=== PATIENT | female | born 1955 | race Caucasian/White ===

== ENCOUNTER 2023-11-26 07:30 | Inpatient (IN) | payer MEDICARE ==
[2023-11-26 07:56] LABS: HEMATOCRIT 38.1 % (34.0-46.0); HEMOGLOBIN 13.1 g/dL (11.7-15.5); MEAN CORPUSCULAR HEMOGLOBIN 29.9 pg (28.2-33.3); MEAN CORPUSCULAR HGB CONC 34.4 g/dL (31.7-36.0); PLATELET COUNT,PLT 52 K/uL (150-350); RED BLOOD CELL COUNT 4.38 M/uL (3.77-5.09); RED CELL DISTRIBUTION WIDTH 14.5 % (11.2-14.1); WHITE BLOOD CELL COUNT,WBC 27.4 K/uL (4.0-10.2)
[2023-11-26] MEDS: Lactated Ringers 1,000 ML IV ONE (07:56)
[2023-11-26] MEDS: Ondansetron 4 MG/2 ML SDV IVPUSH ONE (07:58)
[2023-11-26] MEDS: fentaNYL 50 MCG/ML SDV IVPUSH ONE ×2 (08:16→14:39)
[2023-11-26 08:22] LABS: ALANINE AMINOTRANSFERASE,ALT 94 U/L (12-78); ALBUMIN 3.2 g/dL (3.4-5.0); ALKALINE PHOSPHATASE 354 IU/L (46-116); ASPARTATE AMNIOTRANSFERASE,AST 386 U/L (15-37); BILIRUBIN TOTAL 3.2 mg/dL (0.2-1.0); BLOOD UREA NITROGEN,BUN 22 mg/dL (7-18); CARBON DIOXIDE,CO2 30.9 mmol/L (21.0-32.0); CHLORIDE,CL 96 mmol/L (98-107); CREATINE KINASE,CK 400 U/L (26-308); CREATININE 1.63 mg/dL (0.51-1.17); GLUCOSE RANDOM 161 mg/dL (70-99); PRO B-TYPE NATRIUR PEPT,BNPPRO 789 pg/mL (0-125); PROTEIN TOTAL,TP 7.3 g/dL (6.4-8.2); SODIUM,NA 138 mmol/L (136-145)
[2023-11-26 08:23] LABS: ANION GAP 13.9 meq/L (7-15); ESTIMATED GFR 35 mL/min (>=60)
[2023-11-26 08:24] LABS: CALCIUM 16.3 mg/dL (8.5-10.1); POTASSIUM,K 2.8 mmol/L (3.5-5.1)
[2023-11-26 08:28] LABS: INR 1.2 (0.9-1.1); PROTHROMBIN TIME 11.6 SEC (9.0-11.1)
[2023-11-26 08:52] LABS: LYMPHOCYTES PERCENT MAN 16; MONOCYTES PERCENT MAN 1; SEG NEUTROPHILS PERCENT MAN 83
[2023-11-26] MEDS: Cefepime 2 GM Vial IVPUSH ONE (09:17)
[2023-11-26] MEDS: Sodium Chloride 0.9% 1,000 ML IV ONE (09:17)
[2023-11-26] MEDS: Potassium Chloride Riders 10 MEQ in Premix Bag 1 BAG IV SCH (09:17)
[2023-11-26] MEDS: VANCOmycin 1.5 GM/300 ML 1.5 GM in Premix Bag 1 BAG IV ONE (10:00)
[2023-11-26 10:14] LABS: BASE EXCESS ARTERIAL,POC 8 mmol/L (-2-3); HCO3 ARTERIAL,POC 33.5 mmol/L (22-26); PCO2 ARTERIAL,POC 49 mmHg (35-48); PH ARTERIAL,POC 7.4 pH (7.35-7.45); PO2 ARTERIAL,POC 88 mmHg (83-108); TCO2 ARTERIAL,POC 33.8 mmol/L (23-27)
[2023-11-26 10:31] LABS: APPEARANCE,URINE CLEAR; BILIRUBIN,URINE SMALL (NEGATIVE); COLOR,URINE DARK YELLOW; GLUCOSE,URINE NEGATIVE (NEGATIVE); KETONES,URINE NEGATIVE (NEGATIVE); LEUKOCYTE ESTERASE,URINE NEGATIVE (NEGATIVE); NITRITE,URINE NEGATIVE (NEGATIVE); OCCULT BLOOD,URINE NEGATIVE (NEGATIVE); PH,URINE 5.5 (5.0-9.0); PROTEIN,URINE 30 mg/dL (NEGATIVE)
[2023-11-26 10:38] LABS: EPITHELIAL CELLS,URINE FEW /LPF; GRANULAR CASTS,URINE FEW; HYALINE CASTS,URINE FEW; WBC,URINE 0-5 /HPF
[2023-11-26] MEDS: Potassium Chloride 20 MEQ Tab.ER PO ONE (11:23)
[2023-11-26] MEDS ORDERED: Sodium Chloride 0.9% 1,000 ML IV SCH (14:15)
[2023-11-26] MEDS ORDERED: Naloxone 0.4 MG/ML SDV IVPUSH PRN (14:26)
[2023-11-26] MEDS: Sodium Chloride 0.9% 10 ML Syringe FLUSH PRN (14:39)
[2023-11-26] MEDS ORDERED: Ondansetron 4 MG Tab.DIS PO PRN (16:56)
[2023-11-26] MEDS ORDERED: Prochlorperazine 5 MG in Sodium Chloride 0.9% 100 ML IV PRN (16:56)
[2023-11-26] MEDS ORDERED: Loperamide 2 MG Tab PO PRN (17:18)
[2023-11-26] MEDS ORDERED: oxyCODONE 5 MG Tab PO PRN (17:18)
[2023-11-26 17:48] LABS: HEMATOCRIT 35.5 % (34.0-46.0); HEMOGLOBIN 11.9 g/dL (11.7-15.5); MEAN CORPUSCULAR HEMOGLOBIN 29.8 pg (28.2-33.3); MEAN CORPUSCULAR HGB CONC 33.5 g/dL (31.7-36.0); MEAN CORPUSCULAR VOLUME 88.8 fL (84.0-98.0); RED CELL DISTRIBUTION WIDTH 14.5 % (11.2-14.1); WHITE BLOOD CELL COUNT,WBC 26.9 K/uL (4.0-10.2)
[2023-11-26 17:57] LABS: LACTIC ACID 0.9 mmol/L (0.4-2.0)
[2023-11-26 18:08] LABS: PLATELET COUNT,PLT 47 K/uL (150-350)
[2023-11-26 18:10] LABS: BAND PERCENT MAN 13; EOSINOPHILS PERCENT MAN 5; LYMPHOCYTES % ATYPICAL MANUAL 2; LYMPHOCYTES PERCENT MAN 14; MONOCYTES PERCENT MAN 7; NRBC MANUAL 1; SEG NEUTROPHILS PERCENT MAN 59
[2023-11-26] MEDS: Ondansetron 4 MG/2 ML SDV IVPUSH PRN (20:41)
[2023-11-26] MEDS: Morphine 2 MG/ML SYRINGE IVPUSH PRN (20:45)
[2023-11-26] MEDS: Cefepime 2 GM Vial IVPUSH SCH (20:48)
[2023-11-26] MEDS: Lactated Ringers 1,000 ML IV SCH (23:05)
[2023-11-27 03:58] LABS: HEMATOCRIT 33.1 % (34.0-46.0); HEMOGLOBIN 11.2 g/dL (11.7-15.5); MEAN CORPUSCULAR HEMOGLOBIN 30.2 pg (28.2-33.3); MEAN CORPUSCULAR HGB CONC 33.8 g/dL (31.7-36.0); MEAN CORPUSCULAR VOLUME 89.2 fL (84.0-98.0); RED BLOOD CELL COUNT 3.71 M/uL (3.77-5.09); RED CELL DISTRIBUTION WIDTH 14.8 % (11.2-14.1); WHITE BLOOD CELL COUNT,WBC 24.8 K/uL (4.0-10.2)
[2023-11-27 04:14] LABS: INR 1.2 (0.9-1.1); PROTHROMBIN TIME 11.5 SEC (9.0-11.1)
[2023-11-27 04:18] LABS: ALBUMIN 2.6 g/dL (3.4-5.0); ANION GAP 11.8 meq/L (7-15); BILIRUBIN TOTAL 1.6 mg/dL (0.2-1.0); CARBON DIOXIDE,CO2 31.4 mmol/L (21.0-32.0); CREATININE 1.61 mg/dL (0.51-1.17); EST CRCL DRUG DOSING (CG) 33.42 mL/min; POTASSIUM,K 3.2 mmol/L (3.5-5.1); PROTEIN TOTAL,TP 6.2 g/dL (6.4-8.2)
[2023-11-27 04:25] LABS: PLATELET COUNT,PLT 36 K/uL (150-350)
[2023-11-27 04:28] LABS: BAND PERCENT MAN 14; BASOPHILS ABSOLUTE MAN 0.2654; BASOPHILS PERCENT MAN 1; EOSINOPHILS ABSOLUTE MAN 0.7986; EOSINOPHILS PERCENT MAN 3; MONOCYTES ABSOLUTE MAN 1.0664; MONOCYTES PERCENT MAN 4; NEUTROPHILS ABSOLUTE MAN 18.1313; NRBC MANUAL 1
[2023-11-27 04:34] LABS: LYMPHOCYTES PERCENT MAN 17
[2023-11-27 04:35] LABS: SEG NEUTROPHILS PERCENT MAN 55
[2023-11-27] MEDS ORDERED: Enoxaparin 40 MG/0.4 ML Syringe SUBCUT SCH (08:00)
[2023-11-27] MEDS ORDERED: Polyethylene Glycol 3350 Powder 17 GM Packet PO SCH (08:00)
[2023-11-27] MEDS ORDERED: Sennosides/Docusate Sodium 50-8.6 MG Tab PO SCH (08:00)
[2023-11-27] MEDS ORDERED: VANCOmycin 1.5 GM/300 ML 1.5 GM in Premix Bag 1 BAG IV ONE (10:00)
== END 2023-11-27 05:00 | DRG 872 ==
LOC: LL.ED 07:30 → LL.MS 16:53
PROVIDERS: ADMIT Physician Assistant; ATTEND Physician Assistant
DX: A41.9 Sepsis, unspecified organism (principal); C18.9 Malignant neoplasm of colon, unspecified; C79.51 Secondary malignant neoplasm of bone; N17.9 Acute kidney failure, unspecified; R65.20 Severe sepsis without septic shock; E87.6 Hypokalemia; E83.52 Hypercalcemia; D69.6 Thrombocytopenia, unspecified; R79.89 Other specified abnormal findings of blood chemistry; Z79.899 Other long term (current) drug therapy
CPT/HCPCS: 36415; 51702; 71045; 72100; 80053; 81001; 82550; 82803; 83605; 83880; 84132; 84484; 85025; 85610; 87040; 93005; 96361; 96365; 96366; 96368; 96375; 96376; 99285-25; J0692; J2270; J2405; J3010; J3372; J3480; J3490; J7030; J7120